=== PATIENT | male | born 1995 | race Caucasian/White ===

== ENCOUNTER 2023-02-24 10:21 | Emergency (ER) | payer OTHER ==
[2023-02-24 10:29] VITALS: RESP 18; BMI 23.6
[2023-02-24] MEDS ORDERED: SODIUM CHLORIDE 1,000 ML IV STA (12:51)
[2023-02-24 13:53] LABS: BASO % 0.4 % (0-2.0); HEMATOCRIT 44.7 % (35.4-49); LYMPH % 21.1 % (8-40); MCH 29.8 pg (25.7-33.7); MCHC 33.6 g/dl (32.0-35.9); MEAN CELL VOLUME 88.7 fl (80-96); MEAN PLT VOLUME 8.9 fl (7.5-11.1); MONO % 7.9 % (3.8-10.2); NEUT % 69.6 % (42.8-82.8); PLATELET COUNT 175 10^3/uL (134-434); RBC 5.04 M/mm3 (4.00-5.60); WHITE BLOOD COUNT 8.1 K/mm3 (4.0-10.0)
[2023-02-24 14:02] LABS: INR 1.02 (0.83-1.09); PROTHROMBIN TIME (PATIENT) 11.8 SEC (9.7-13.0)
[2023-02-24 14:05] LABS: ACTIVATED PTT 30.7 SECONDS (25.2-36.5)
[2023-02-24 14:27] LABS: POTASSIUM 4.1 mmol/L (3.5-5.1)
[2023-02-24 14:28] LABS: ALBUMIN 4.1 g/dl (3.4-5.0); CALCIUM 9.7 mg/dL (8.5-10.1)
[2023-02-24 14:29] LABS: BLOOD UREA NITROGEN 12.8 mg/dL (7-18)
[2023-02-24 14:32] LABS: CREATININE 0.9 mg/dL (0.55-1.3)
[2023-02-24 14:33] LABS: BILIRUBIN,TOTAL 0.8 mg/dL (0.2-1); TOT PROT 7.3 g/dl (6.4-8.2)
[2023-02-24 14:40] LABS: URINE APPEARANCE CLEAR; URINE BILIRUBIN NEGATIVE (NEGATIVE); URINE COLOR YELLOW; URINE GLUCOSE (UA) NEGATIVE (NEGATIVE); URINE KETONE 2+ (NEGATIVE); URINE LEUK ESTERASE NEGATIVE (NEGATIVE); URINE NITRITE NEGATIVE (NEGATIVE); URINE PROTEIN NEGATIVE (NEGATIVE); URINE UROBILINOGEN 0.2 mg/dL (0.2-1.0)
[2023-02-24 17:09] VITALS: BP 121/66; PULSE 70; TEMP 98
== END 2023-02-24 17:09 | disposition home or self-care (01) ==
LOC: JER 10:21
PROC: 3E0337Z Introduction of Electrolytic and Water Balance Substance into Peripheral Vein, Percutaneous Approach (ICD-10-PCS; principal; 2023-02-24)
DX: R10.31 Right lower quadrant pain (principal)
CPT/HCPCS: 36415; 74177-TC; 80053; 81003; 83690; 85025; 85610; 85730; 87086; 99285-25